=== PATIENT | female | born 2000 | race African-American/Black ===

== ENCOUNTER 2023-02-16 10:08 | Emergency (ER) | payer SELFPAY ==
[2023-02-16] MEDS ORDERED: DIPHENHYDRAMINE 50 MG/ML VIAL ONE (10:34)
[2023-02-16] MEDS ORDERED: NA CHLORIDE 0.9% 1,000 ML ONE (10:34)
[2023-02-16] MEDS ORDERED: METOCLOPRAMIDE 10 MG/2mL INJ ONE (10:34)
[2023-02-16] MEDS ORDERED: KETOROLAC 30 MG/ML INJ ONE (10:34)
[2023-02-16 10:48] LABS: Absolute Lymphocytes (CBC) 2.7 K/uL (0.7-4.9); Hematocrit 39.8 % (36.0-45.0); Lymphocytes % 38.4 % (15.3-44.8); MCV 87.6 fL (80-100); MPV 8.9 fL (7.6-11.3); RBC Red Blood Cell Count 4.55 M/uL (3.86-4.86)
[2023-02-16 10:51] LABS: Specific Gravity 1.026 (1.005-1.030); Transitional Epithelial <5 /HPF (None Seen); Urine Bacteria <20 /HPF (<20); Urine Bilirubin NEGATIVE (Negative); Urine Blood Negative (Negative); Urine Clarity Extremely Turbid (Clear); Urine Color Light-Yellow (Yellow); Urine Glucose NEGATIVE (Negative); Urine Mucus Slight /HPF (None Seen); Urine Protein TRACE (Negative); Urine RBC <5 /HPF (None Seen); Urine Urobilinogen Normal (Normal)
[2023-02-16 10:58] LABS: Potassium 3.9 mEq/L (3.5-5.1)
--- NOTE | 2023-02-16 11:13 | ER ---
Nurse's Notes [facility] Name: Maria Eugenia Tomlin Age: 22 yrs Sex: Female : 2000 Arrival Date: 02/16/2023 Time: 10:08 Bed 18 Private MD: Diagnosis: state, incidental;Headache Presentation: 02/16 10:21 Chief complaint: Migraine and dizziness x 5 days. Coronavirus screen: At this time, the hb client does not indicate any symptoms associated with coronavirus-19. Ebola Screen: No symptoms or risks identified at this time. Initial Sepsis Screen: Does the patient meet any 2 criteria? No. Patient's initial sepsis screen is negative. Does the patient have a suspected source of infection? No. Patient's initial sepsis screen is negative. Risk Assessment: Do you want to hurt yourself or someone else? Patient reports no desire to harm self or others. Onset of symptoms was February 12, 2023. 10:21 Method Of Arrival: Ambulatory 10:21 Acuity: RAMSES 3 hb Triage Assessment: 11:20 Headache History: The patient has had previous headaches and this one is similar to ll1 previous episodes. General: Appears in no apparent distress. Behavior is calm, cooperative, appropriate for age. Pain: Pain began 2-3 days ago. Also complains of nausea. Pain: Complains of pain in head Pain currently is 5 out of 10 on a pain scale. Quality of pain is described as aching. 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 - Social history:: Smoking status: Reported history of juuling and/or vaping. Screenin:50 [facility] ED Fall Risk Assessment (Adult) Score/Fall Risk Level 0 - 2 = Low Risk ll1 Oriented to surroundings, Maintained a safe environment, Educated pt \T\ family on fall prevention, incl call for assistance when getting out of bed, Hourly rounding (assess needs \T\ fall precautionary measures) done. Abuse screen: Denies threats or abuse. Nutritional screening: No deficits noted. Tuberculosis screening: No symptoms or risk factors identified. Assessment: 10:23 General: Appears uncomfortable, Behavior is calm, cooperative, appropriate for age. ll1 Pain: Complains of pain in head Pain currently is 7 out of 10 on a pain scale. Quality of pain is described as aching, throbbing. Neuro: Reports dizziness, headache. 10:40 Reassessment: No changes from previously documented assessment. Patient and/or family ll1 updated on plan of care and expected duration. Pain level reassessed. patient stated she wasn't before medication administration. 11:19 Reassessment: No changes from previously documented assessment. Patient and/or family ll1 updated on plan of care and expected duration. Pain level reassessed. Patient is alert, oriented x 3, equal unlabored respirations, skin warm/dry/pink. Patient states feeling better. Vital Signs: 10:21 BP 128 / 78; Pulse 82; Resp 16; Temp 98.5(O); Pulse Ox 100% on R/A; Weight 68.04 kg; hb Height 5 ft. 5 in. ; Pain 7/10; 11:20 BP 131 / 70; Pulse 87; Resp 16; Pulse Ox 100% ; Pain 5/10; ll1 10:21 Body Mass Index 24.96 (68.04 kg, 165.1 cm) hb 10:21 Pain Scale: Adult hb 11:20 Pain Scale: Adult ll1 ED Course: 10:11 Patient arrived in ED. kj1 10:12 [facility]C [facility] kb 10:12 Ravindra Sandoval DO is Attending Physician. kb 10:21 Karina Calhoun, COURTNEY is Primary Nurse. ll1 10:21 Arm band placed on Patient placed in an exam room, on a stretcher. ll1 10:23 Triage completed. hb 10:35 Inserted saline lock: 20 gauge in left antecubital area, using aseptic technique. Blood sm8 collected. by Selin mathematical engineering technician. 10:48 Test, Urine Sent. ll1 10:48 Urinalysis w/ reflexes Sent. ll1 10:48 Basic Metabolic Panel Sent. ll1 10:48 CBC with Diff Sent. ll1 10:50 Patient has correct armband on for positive identification. Bed in low position. Call ll1 light in reach. Client placed on continuous cardiac and pulse oximetry monitoring. NIBP monitoring applied. 11:20 No provider procedures requiring assistance completed. IV discontinued, intact, ll1 bleeding controlled, No redness/swelling at site. Pressure dressing applied. 11:22 Provided Education on: Tylenol only while , no ibuprofen. verbalized ll1 understanding. . Administered Medications: 10:40 Drug: NS 0.9% IV 1000 ml Route: IV; Rate: 1000 ml; Site: left antecubital; ll1 11:19 Follow up: Response: No adverse reaction; IV Status: Order to discontinue infusion; IV ll1 Intake: 700ml 10:41 Drug: Ketorolac IVP 15 mg {Note: RASS 0, pain 7/10.} Route: IVP; Site: left antecubital;ll1 11:19 Follow up: Response: No adverse reaction; Pain is decreased; RASS: Alert and Calm (0) ll1 10:42 Drug: diphenhydrAMINE IVP 12.5 mg Route: IVP; Site: left antecubital; ll1 11:19 Follow up: Response: No adverse reaction 1 10:43 Drug: metoCLOPramide IVP 10 mg Route: IVP; Site: left antecubital; ll1 11:19 Follow up: Response: No adverse reaction ll1 Medication: 10:50 VIS not applicable for this client. ll1 Intake: 11:19 IV: 700ml; Total: 700ml. ll1 Outcome: 11:12 Discharge ordered by . kb 11:21 Discharged to home ambulatory. ll1 11:21 Condition: stable 11:21 Discharge instructions given to patient, Instructed on discharge instructions, follow up and referral plans. Demonstrated understanding of instructions, follow-up care. 11:23 Patient left the ED. ll1 Signatures: Leana Hung, JOHNNAC SARAHY-Nancie Demarco RN RN Luisa Hung kj1 Karina Calhoun RN RN ll1 Barbara Reyes 8 Corrections: (The following items were deleted from the chart) 11:04 10:35 Inserted saline lock: 20 gauge in left antecubital area, using aseptic technique. sm8 Blood collected. by LEVAR Smallwood tech 1
--- NOTE | 2023-02-16 11:13 | EDPHYS ---
Physician Documentation [facility] Name: Maria Eugenia Tomlin Age: 22 yrs Sex: Female : 2000 Arrival Date: 02/16/2023 Time: 10:08 Bed 18 Private MD: ED Physician Ravindra Sandoval HPI: 02/16 11:32 This 22 yrs old Black Female presents to ER via Ambulatory with complaints of kb Dizziness, Headache < 24hrs Old. 11:32 The patient has not experienced similar symptoms in the past. The patient has not kb recently seen a physician. 11:32 The patient complains of pain to the forehead. The patient describes the headache as kb intermittent. Onset: The symptoms/episode began/occurred 6 day(s) ago. Associated signs and symptoms: Pertinent positives: lightheadedness, Pertinent negatives: fever, nausea, Photophobia vomiting. Severity of symptoms: At its worst the pain was mild, moderate, in the emergency department the pain is unchanged. Headache History: Denies prior headaches. The symptoms are alleviated by nothing. the symptoms are aggravated by nothing. Pt reports daily headaches for the last 6 days and intermittent lightheadedness. Denies n/v, fever, malaise. 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 - Social history:: Smoking status: Reported history of juuling and/or vaping. ROS: 11:03 Constitutional: Negative for fever, chills, and weight loss. kb 11:03 Neuro: Positive for headache, lightheadedness. 11:03 All other systems are negative. Exam: 11:03 Constitutional: This is a well developed, well nourished patient who is awake, alert, kb and in no acute distress. Head/Face: Normocephalic, atraumatic. ENT: Moist Mucous membranes Cardiovascular: Regular rate and rhythm with a normal S1 and S2. No gallops, murmurs, or rubs. No pulse deficits. Respiratory: Respirations even and unlabored. No increased work of breathing. Talking in full sentences Abdomen/GI: Soft, non-tender. No distention Skin: Warm, dry with normal turgor. Normal color. MS/ Extremity: Pulses equal, no cyanosis. Neurovascular intact. Full, normal range of motion. Neuro: Awake and alert, GCS 15, oriented to person, place, time, and situation. Moves all extremities. Normal gait. Vital Signs: 10:21 BP 128 / 78; Pulse 82; Resp 16; Temp 98.5(O); Pulse Ox 100% on R/A; Weight 68.04 kg; hb Height 5 ft. 5 in. ; Pain 7/10; 11:20 BP 131 / 70; Pulse 87; Resp 16; Pulse Ox 100% ; Pain 5/10; ll1 10:21 Body Mass Index 24.96 (68.04 kg, 165.1 cm) hb 10:21 Pain Scale: Adult hb 11:20 Pain Scale: Adult ll1 MDM: 10:12 Patient medically screened. kb 11:06 Differential diagnosis: cardiac arrhythmia, generalized weakness, hypovolemia, kb , uti. Data reviewed: vital signs, nurses notes. Counseling: I had a detailed discussion with the patient and/or guardian regarding: the historical points, exam findings, and any diagnostic results supporting the discharge/admit diagnosis, lab results, the need for outpatient follow up, a family practitioner, to return to the emergency department if symptoms worsen or persist or if there are any questions or concerns that arise at home. 02/16 10:17 Order name: CBC with Diff; Complete Time: 11:02 kb 02/16 10:17 Order name: Basic Metabolic Panel; Complete Time: 11:02 kb 02/16 10:17 Order name: Test, Urine; Complete Time: 10:51 kb 02/16 10:17 Order name: Urinalysis w/ reflexes; Complete Time: 10:51 kb 02/16 10:56 Order name: HCG-Quantitative; Complete Time: 11:21 kb 02/16 10:17 Order name: IV Start; Complete Time: 10:48 kb Administered Medications: 10:40 Drug: NS 0.9% IV 1000 ml Route: IV; Rate: 1000 ml; Site: left antecubital; ll1 11:19 Follow up: Response: No adverse reaction; IV Status: Order to discontinue infusion; IV ll1 Intake: 700ml 10:41 Drug: Ketorolac IVP 15 mg {Note: RASS 0, pain 7/10.} Route: IVP; Site: left antecubital;ll1 11:19 Follow up: Response: No adverse reaction; Pain is decreased; RASS: Alert and Calm (0) ll1 10:42 Drug: diphenhydrAMINE IVP 12.5 mg Route: IVP; Site: left antecubital; ll1 11:19 Follow up: Response: No adverse reaction ll1 10:43 Drug: metoCLOPramide IVP 10 mg Route: IVP; Site: left antecubital; ll1 11:19 Follow up: Response: No adverse reaction ll1 Disposition: 13:38 Co-signature as Attending Physician, Ravindra Sandoval DO I was immediately available on-site ms3 in the Emergency Department for consultation in the care of the patient. Disposition Summary: 02/16/23 11:12 Discharge Ordered Location: Home kb Condition: Stable kb Diagnosis - state, incidental kb - Headache kb Followup: kb - With: Emergency Department - When: As needed - Reason: Worsening of condition Followup: kb - With: Private Physician - When: 2 - 3 days - Reason: Recheck today's complaints, Continuance of care, Re-evaluation by your physician Discharge Instructions: - Morning Sickness, [id number] kb - First Trimester of , [id number] kb - Discharge Summary Sheet ph Forms: - Medication Reconciliation Form kb - Thank You Letter kb - Antibiotic Education kb - Prescription Opioid Use kb - Patient Portal Instructions kb - Work release form ph Signatures: Dispatcher [employer] Leana Dye, LEATHA WEATHERS-Karina Young, RN RN ll1 Ravindra Sandoval DO DO ms3
[2023-02-16 11:55] VITALS: TEMP 98.5; O2SAT 100
[2023-02-16 11:56] VITALS: BP 131/70
== END 2023-02-16 11:23 | disposition home or self-care (01) ==
LOC: ER 10:08
DX: R51.9 Headache, unspecified (principal); Z33.1 Pregnant state, incidental
CPT/HCPCS: 36415; 80048; 81001; 81025; 84702; 85025; 96361; 96374; 96375; 99284; J1200; J2765; J7030